=== PATIENT | female | born 1985 | race Two or more races ===

== ENCOUNTER 2025-06-06 22:32 | Emergency (ER) | payer BC ==
[~2025-06-06] VITALS: Ht 157.5 cm; Wt 73.5 kg
[2025-06-06] MEDS ORDERED: MECLIZINE HCL 25 MG TABLET ONE (23:47)
[2025-06-06] MEDS: MECLIZINE HCL 25 MG TABLET PO ONE (23:48)
[2025-06-06] MEDS: IV NS 0.9% 1,000 ML BAG IV ONE (23:48)
[2025-06-06 23:56] LABS: PLATELET COUNT (AUTO) 224 K/uL (150-450); RED BLOOD CELL COUNT(AUTO) 4.40 MIL/uL (4.0-5.2); RED CELL DISTRIBUTION WIDTH 14.2 % (11.5-15.0); WHITE BLOOD COUNT (AUTO) 4.9 K/uL (4.3-11.0)
[2025-06-07 00:01] LABS: CALCIUM, SERUM 8.4 mg/dL (8.5-10.1); CREATININE 0.6 mg/dL (0.6-1.3); SODIUM SERUM 141 mmol/L (136-145); UREA NITROGEN, BLOOD 10 mg/dL (7-18)
[2025-06-07 00:06] LABS: ASPARTATE AMINOTRANSFERASE 14 U/L (15-37); TOTAL PROTEIN, SERUM 7.6 g/dL (6.4-8.2)
[2025-06-07] MEDS ORDERED: MECL-159 PO (00:40)
[2025-06-07 00:49] VITALS: BP 128/77; TEMP 98.4; O2SAT 98
== END 2025-06-07 00:50 | disposition home or self-care (01) ==
LOC: ER 22:47
DX: R42 Dizziness and giddiness (principal); R10.20 Pelvic and perineal pain unspecified side
CPT/HCPCS: 99284; 96360; 93005; 85025; 80048; 83690; 80076; 36415; 84484; 82962; 84702; J8597; J7030